=== PATIENT | female | born 1995 | race Caucasian/White ===

== ENCOUNTER 2016-09-10 13:26 | Emergency (ER) | payer SELFPAY ==
[2016-09-10 13:45] VITALS: BP 132/90
--- NOTE | 2016-09-10 15:41 | UC ---
Back Pain HPI - HPI Summary HPI Summary: 21 y/o female presents to the urgent care c/o lower back pain and spasm after picking heavy load this morning at 10:40 am at work, her pain was so intense that she almost passed out. 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 Today her pain is 7/10 with movement and 4/10 at rest w/o any radiation. She feels a tingling sensation down her both thighs. Pt denies fever, SOB, Chest pain, urinary or fecal incontinence, saddle anesthesia. Pt has not other complains. - History of Current Complaint Chief Complaint: UCBackPain Stated Complaint: BACK INJURY Time Seen by Provider: 09/10/16 14:48 Hx Obtained From: Patient Hx Last Menstrual Period: 02/02/12 ?: Yes Onset/Duration: Sudden Onset, Lasting Hours, Still Present Timing: Constant Severity Initially: Severe Severity Currently: Moderate Pain Intensity: 7 - w/ movement Pain Scale Used: 0-10 Numeric Back Pain: Is Discrete @ - Lower back Character: Sharp Aggravating: Movement Alleviating: Rest Associated Signs And Symptoms: Positive: Numbness, Tingling, Pain with Weight Bearing. Negative: Swelling, Redness, Bruising, Fever, Abdominal Pain, Bladder Incontinence, Bowel Incontinence - Risk Factors AAA Risk Factors: Negative TAD Risk Factors: Negative Cauda Equina Risk Factors: Negative Epidural Abscess Risk Factors: Negative - Allergies/Home Medications Allergies/Adverse Reactions: Allergies Allergy/AdvReac Type Severity Reaction Status Date / Time No Known Allergies Allergy Verified 08/10/13 07:56 PMH/Surg Hx/FS Hx/Imm Hx Previously Healthy: Yes - Surgical History Surgical History: None - Family History Known Family History: Positive: Cardiac Disease Family History: Arthritis, skin cancer - Social History Occupation: Employed Full-time Lives: With Family Alcohol Use: Occasionally Substance Use Type: None Smoking Status (MU): Never Smoked Tobacco Review of Systems Constitutional: Negative Skin: Negative Eyes: Negative ENT: Negative Respiratory: Negative Cardiovascular: Negative Gastrointestinal: Negative Genitourinary: Negative Motor: Negative Neurovascular: Negative Musculoskeletal: Other: - lower back pain and spasm Neurological: Negative Psychological: Negative All Other Systems Reviewed And Are Negative: Yes Physical Exam Triage Information Reviewed: Yes Appearance: Well-Appearing, No Pain Distress, Well-Nourished, Obese Vital Signs: Initial Vital Signs Temp 97.7 F 09/10/16 13:41 Pulse 82 09/10/16 13:41 Resp 18 09/10/16 13:41 BP 132/90 09/10/16 13:41 Pulse Ox 100 09/10/16 13:41 Vital Signs Reviewed: Yes Eye Exam: Normal Eyes: Positive: Conjunctiva Clear - KATHIE, EOMI, fundi grossly normal ENT Exam: Normal ENT: Positive: Normal ENT inspection, Hearing grossly normal, Pharynx normal, TMs normal Dental Exam: Normal Neck exam: Normal Neck: Positive: Supple, Nontender, No Lymphadenopathy Respiratory Exam: Normal Respiratory: Positive: Chest non-tender, Lungs clear, Normal breath sounds Cardiovascular Exam: Normal Cardiovascular: Positive: RRR, No Murmur, Pulses Normal, Brisk Capillary Refill Abdominal Exam: Normal Abdomen Description: Positive: Nontender, No Organomegaly, Soft. Negative: CVA Tenderness (R), CVA Tenderness (L) Bowel Sounds: Positive: Present Musculoskeletal Exam: Normal Musculoskeletal: Positive: Strength Intact, Strength Limited @ - BACK: Patient walked into the urgent care room with symmetric ambulation, No signs of limping , antalgic, able to bear weight. No signs of trauma,point tenderness at the level of L5-S1 with tenderness over the paraspinal muscles at this same level. No swelling or erythema observed. No masses palpated. No CVAT, no flank ecchymosis . No sacroiliac notch tenderness, No saddle anesthesia ROM: decreae flexion and extension due to pain. Pt can do lateral bending. Straight Leg Raise: negative. Patellar reflexes: brisk, symmetric Muscle strength lower extremities. Dorsiflexion/ plantar flexion of ankles. Heel/ toe walk Lower extremities: Femoral, popliteal, posterior tibial, and dorsalis pedis pulses with in normal, Rectal: Patient refused the exam. Neurological Exam: Normal Psychological Exam: Normal Skin Exam: Normal Back Pain Course/Dx - Course Course Of Treatment: 21 y/o female presents to the urgent care c/o lower back pain and spasm after picking heavy load this morning at 10:40 am, her pain was so intense that she almost passed out. . Pt reports her pain now is 7/10 with movement and 4/10 at rest. She feels and tingling sensation down her thighs. Pt denies fever, SOB, Chest pain, urinary symptoms, saddle anesthesia.Hx obtained. PE abnormal findings: Positive: Strength Intact, Strength Limited @ - BACK: Patient walked into the urgent care room with symmetric ambulation, No signs of limping, antalgic, able to bear weight. No signs of trauma,point tenderness at the level of L5-S1 with tenderness over the paraspinal muscles at this same level. No swelling or erythema observed. No masses palpated. No CVAT, no flank ecchymosis . No sacroiliac notch tenderness, No saddle anesthesia ROM : decreae flexion and extension due to pain. Pt can lateral bending. Straight Leg Raise: negative. Patellar reflexes: brisk, symmetric Muscle strength lower extremities. Dorsiflexion/ plantar flexion of ankles. Heel/ toe walk Lower extremities: Femoral, popliteal, posterior tibial, and dorsalis pedis pulses with in normal, Rectal: Patient refused the exam. Pt given Ibuprofen PO 800mg to alleviate pain at the clinic. Pt tolerated well medication. Lumbasacral X-ray ordered. Impression:negative. Pt Rx Medrol dose ugo, Ibuprofen and flexeril PO to alleviate symptoms advised to apply RICE , wear a back support and f/u with her PCP for further evaluation and treatment if symptoms do not improve or worsen.Pt understood and agreed and left the clinic ambulating. - Differential Dx/Diagnosis Differential Diagnosis/HQI/PQRI: Cauda Equina Syndrome, Fracture, Herniated Disc , Renal Colic, Strain, Sprain Provider Diagnoses: 1- Acute back pain Discharge - Discharge Plan Condition: Stable Disposition: HOME Prescriptions: Cyclobenzaprine TAB* [Flexeril 10 MG TAB*] 10 mg PO TID PRN #15 tab PRN Reason: Spasms - Back Ibuprofen TAB* [Motrin TAB* 800 MG] 800 mg PO Q6H #30 tab Methylprednisolone [Medrol Dosepak 4 MG*] 4 mg PO .SEE UGO INSTRUCTION #1 ugo Patient Education Materials: Acute Low Back Pain (ED) Forms: *Work Release Referrals: Jah RANDHAWA,Artis Flanagan [Primary Care Provider] - 3 Days Additional Instructions: Please take medications as directed to alleviate symptoms. Please apply ice and rest, avoid strenuous exercises or heavy lifting. wear a back support until symptoms resolve. If symptoms do not improve or worsen please go to the ER immediately. Otherwise f/u with your PCP for further evaluation and treatment.
[2016-09-10] MEDS ORDERED: Ibuprofen TAB* 400 MG PO ONE (15:42)
--- NOTE | 2016-09-10 16:21 | RAD ---
HISTORY: Low back pain, injury COMPARISONS: None VIEWS: 5 , Frontal, lateral, coned-down lateral sacral, and bilateral oblique views of the lumbar spine. FINDINGS: ALIGNMENT: The alignment is normal. VERTEBRAL BODIES: The vertebral body heights are normal. The interpedicular distances are normal. JOINTS: The facet joints are normal. INTERVERTEBRAL DISCS: The intervertebral disc heights are normal. SOFT TISSUE: Unremarkable. OTHER: The pelvis is unremarkable. The lung bases are clear. IMPRESSION: UNREMARKABLE RADIOGRAPHS OF THE LUMBAR SPINE
== END 2016-09-10 16:49 | disposition home or self-care (01) ==
LOC: UCEAST 13:26
DX: M54.5 Low back pain (principal)
CPT/HCPCS: 72110; 99212; A9270-GY; G0463